=== PATIENT | female | born 1950 | race Hispanic/Latino ===

== ENCOUNTER → 2017-07-12 | Outpatient (CLI) | payer MEDICARE ==
[~2017-07-12] MED LIST: GADOBENATE DIMEGLUMINE 1 ML IV ONE
[2017-07-12 10:25] LABS: BLOOD UREA NITROGEN 12 mg/dL (7-26); BUN/CREATININE RATIO 40 (6-25); EST GLOMERULAR FILTRATION RATE > 60 ML/MIN (60-)
--- NOTE | 2017-07-12 11:56 | Diagnostic Imaging Report ---
MRI abdomen CPT code: 23574 Indication: Hemangioma Technique: Multiplanar, multi-sequential MRI was performed both before and after the intravenous administration of 15 cc of MultiHance. Liver protocol was used. Comparison: MRI abdomen 11/16/2016, CT from [facility] MRI and diagnostic 09/17/2016, ultrasound from [facility] MRI and diagnostic 07/27/2016 Findings: Liver: Decreased loss of signal on opposed phase sequence consistent with steatosis. The right lobe measures 20 cm in length. Hemangioma dominating the left lobe measures 5.7 x 9.5 x 8.0 cm. There is no blooming artifact to suggest hemorrhage. This hemangioma has typical peripheral, discontinuous, nodular enhancement with gradual fill-in over time. No washout. A subcapsular cyst or a cleft in the inferolateral aspect of segment 6 measures 8 mm and is stable. Gallbladder: Absent Biliary tree: Normal Pancreas: Normal T1 and T2 signal without mass or ductal dilatation. Spleen: Measures 13 cm in length. It is normal in signal without mass Adrenal glands: No mass Kidneys: No hydronephrosis. Peripelvic cysts in the lower pole of the left kidney are stable. Lymph nodes: No lymphadenopathy Bowel: The stomach and visualized portions of the small bowel are normal in diameter with normal wall thickness. Lung bases: Clear. Bones: No focal osseous lesions. Soft tissues: Unremarkable. IMPRESSION: 1. Stable giant hepatic hemangioma. 2. Hepatic steatosis and stable hepatomegaly. 3. Other findings as described above. Signed by: Dr. Rukhsana Christensen MD on 07/12/2017 11:53 AM
== END ==
LOC: MRI 09:47
PROVIDERS: ATTEND Internal Medicine Gastroenterology
DX: E11.9 Type 2 diabetes mellitus without complications (principal); D18.03 Hemangioma of intra-abdominal structures; E66.3 Overweight; Z71.3 Dietary counseling and surveillance
CPT/HCPCS: 36415; 74183; 82565; 84520

== ENCOUNTER 2018-11-26 20:32 | Emergency (ER) | payer MEDICARE, OTHER ==
[~2018-11-26] VITALS: Ht 157.5 cm; Wt 72.6 kg
--- OUTSIDE RECORDS SUMMARY | 2018-11-26 20:35 | XMS REPORT ---
Author Author [facility] Address Unknown Phone Unavailable Care Team Providers Care It Security Analyst Name Role Phone Cindi DUKE Unavailable Unavailable Problems This patient has no known problems. Allergies, Adverse Reactions, Alerts This patient has no known allergies or adverse reactions. Medications This patient has no known medications. Results Test Description Test Time Test Comments Text Results Atomic Results Result Comments SCR MAMM BILATERAL MICHAEL CAD DIGITAL 2018-08-23 13:04:04 - SCR MAMM BILATERAL MICHAEL CAD DIGITALBILATERAL DIGITAL SCREENING MAMMOGRAM 3D/2D WITH CAD: 08/23/2018CLINICAL: Asymptomatic. Digital breast tomosynthesis was performed in addition to routine CC and MLO views. Current mammographic images were evaluated by either a Nanotion M-Vu or a Elevate Digital ImageChecker CAD (computer aided detection system). Comparison is made to exams dated 07/03/2016 mammogram - [facility], 01/29/2015 mammogram, and 01/17/2014 mammogram - b. There are scattered fibroglandular tissues in both breasts. No suspicious mass, architectural distortion, malignant type calcification, or lymph node abnormality detected. Breast architecture is stable compared to prior exams.IMPRESSION: NEGATIVEThere is no mammographic evidence of malignancy. Resume annual screening mammography in one year. Iggy Carpenter M.D. qn/penrad:08/23/2018 13:04:04 Sugar Refiner: Genia Jiménez FW, [facility] sent: BIRADS 1-2 Normal Mammogram BI-RADS: 1 N egative MRI ABDOMEN WOW [place] [id number] Patient Name: YULIYA VERA MR #: [id number] : 1950 Age/Sex: 66/F Req #: [id number] Adm Physician: Ordered by: CLAU DUKE MD Report #: [id number] Location: MRI Room/Bed: Procedure: [id number] MRI/MRI ABDOMEN WOW Exam Date: Exam Time: REPORT STATUS: Signed MRI abdomen CPT code: 31223 Indication: Hemangioma Technique: Multiplanar, multi-sequential MRI was performed both before and after the intravenous administration of 15 cc of MultiHance. Liver protocol was used. Comparison: MRI abdomen 11/16/2016, CT from [facility] MRI and diagnostic 09/17/2016, ultrasound from [facility] MRI and diagnostic 07/27/2016 Findings: Liver: Decreased loss of signal on opposed phase sequence consistent with steatosis. The right lobe measures 20 cm in length. Hemangioma dominating the left lobe measures 5.7 x 9.5 x 8.0 cm. There is no blooming artifact to suggest hemorrhage. This hemangioma has typical peripheral, discontinuous, nodular enhancement with gradual fill-in over time. No washout. A subcapsular cyst or a cleft in the inferolateral aspect of segment 6 measures 8 mm and is stable. Gallbladder: Absent Biliary tree: Normal Pancreas: Normal T1 and T2 signal without mass or ductal dilatation. Spleen: Measures 13 cm in length. It is normal in signal without mass Adrenal glands: No mass Kidneys: No hydronephrosis. Peripelvic cysts in the lower pole of the left kidney are stable. Lymph nodes: No lymphadenopathy Bowel: The stomach and visualized portions of the small bowel are normal in diameter with normal wall thickness. Lung bases: Clear. Bones: No focal osseous lesions. Soft tissues: Unremarkable. IMPRESSION: 1. Stable giant hepatic hemangioma. 2. Hepatic steatosis and stable hepatomegaly. 3. Other findings as described above. Signed by: Dr. Emily Christensen MD on 07/12/2017 11:53 AM Dictated By: EMILY CHRISTENSEN MD [id number] Transcribed By: CONTRERAS on 07/12/17 1153 COPY TO: CLAU DUKE MD
[2018-11-26 21:50] LABS: CLARITY,URINE CLEAR (CLEAR); COLOR,URINE YELLOW (YELLOW); KETONES,URINE TRACE (NEGATIVE); LEUKOCYTE ESTERASE ,URINE NEGATIVE (NEGATIVE); NITRITE,URINE NEGATIVE (NEGATIVE); PROTEIN,URINE DIPSTICK NEGATIVE (NEGATIVE)
[2018-11-26 21:51] LABS: BILIRUBIN,URINE NEGATIVE (NEGATIVE); URINE UROBILINOGEN 1 mg/dL (0.2 - 1)
--- NOTE | 2018-11-26 22:23 | Diagnostic Imaging Report ---
Single AP pelvis radiograph, 2 AP radiographs of the right hip, and 1 radiograph of the left hip HISTORY: Pain. COMPARISON: None available. FINDINGS: Pelvic osseous structures are partially obscured by bowel contents. Bones: No acute displaced fracture. Osseous alignment is within normal limits. Joints: Degenerative disc changes in the lower lumbar spine. Mild degenerative changes in the sacroiliac joints and bilateral hips. Soft tissues: Mild enthesopathic changes in the hips and pelvis. IMPRESSION: No acute radiographic osseous abnormality. Mild degenerative changes in the lower lumbar spine, sacroiliac joints, and bilateral hips. Signed by: Chip Corral DO on 11/26/2018 10:20 PM
[2018-11-26 22:40] LABS: BACTERIA,URINE MODERATE /HPF; EPITHELIAL CELLS,URINE MODERATE /LPF; RBC,URINE 0-5 /HPF (0-5); WBC,URINE (MAN) 0-5 /HPF (0-5)
[2018-11-26] MEDS ORDERED: ULTRAM50 MG PO (22:41)
[2018-11-26] MEDS ORDERED: PREDNISONE20 MG PO (22:41)
[2018-11-26] MEDS ORDERED: METHYLPREDNISOLONE SOD SUCC 125 MG/2ML VIAL IM ONE (22:45)
[2018-11-26] MEDS ORDERED: HYDROCODONE/APAP 10MG-325MG TAB PO ONE (22:45)
[2018-11-27 00:53] VITALS: BP 124/86
== END 2018-11-27 01:00 | disposition home or self-care (01) ==
LOC: ER 20:32
DX: M54.5 Low back pain (principal); S39.012A Strain of muscle, fascia and tendon of lower back, initial encounter; M25.552 Pain in left hip; M25.551 Pain in right hip; M47.897 Other spondylosis, lumbosacral region; W18.30XA Fall on same level, unspecified, initial encounter; Y92.89 Other specified places as the place of occurrence of the external cause
CPT/HCPCS: 73522; 81001; 99284; J2930